=== PATIENT | male | born 1985 | race Caucasian/White ===

== ENCOUNTER 2016-11-19 17:33 | Emergency (ER) | payer SELFPAY ==
[~2016-11-19] VITALS: Ht 182.9 cm; Wt 133.2 kg
[~2016-11-19 17:33] MED LIST: VALIUM 5MG T5 MG/TAB PO
[2016-11-19 17:39] VITALS: BP 135/83; TEMP 98.2
[2016-11-19 18:23] LABS: BASO % 0.2 % (0.0-2.0); EOS # 0.1 (0.0-0.7); GRAN # 4.7 (1.4-6.5); GRAN % 53.8 % (42.2-75.2); HEMATOCRIT 41.9 % (42.0-52.0); HEMOGLOBIN 13.8 g/dl (13.5-18.0); LYMPH # 3.3 (1.2-3.4); LYMPH % 37.5 % (20.0-51.0); MEAN CELL VOLUME 82 fl (80.0-100.0); MEAN CORPUSCULAR HEMOGLOBIN 27 pg (27.0-31.0); MEAN CORPUSCULAR HGB CONC 33 g/dl (33.0-37.0); MEAN PLATELET VOLUME 8.3 fl (7.4-10.4); MONO # 0.6 (0.1-0.6); MONO % 7.3 % (1.7-9.3); PLATELET COUNT 321 K/mm3 (130-400); RED BLOOD COUNT 5.13 M/mm3 (4.20-5.60); REDCELL DISTRIBUTION WIDTH-CV 13.2 % (11.5-14.5); WHITE BLOOD COUNT 8.7 K/mm3 (4.8-10.8)
[2016-11-19 18:32] LABS: ADJUSTED CALCIUM 9.6 mg/dL (8.4-10.2); ALANINE AMINOTRANSFERASE 32 U/L (21-72); ALBUMIN 4.7 gm/dL (3.5-5.0); ALKALINE PHOSPHATASE 67 U/L (50-136); ANION GAP 13 mmol/L (7-16); BILIRUBIN,TOTAL 0.7 mg/dL (0.0-1.0); BLOOD UREA NITROGEN 22 mg/dL (9-20); CALCIUM 10.2 mg/dL (8.4-10.2); CARBON DIOXIDE 28 mmol/L (22-30); CHLORIDE 106 mmol/L (98-107); CREATININE, serum 0.72 mg/dL (0.66-1.25); GLUCOSE 98 mg/dL (74-106); LIPASE 51 U/L (23-300); POTASSIUM 4.2 mmol/L (3.4-5.0); SODIUM 147 mmol/L (137-145); TOTAL PROTEIN 8.2 gm/dL (6.4-8.2)
[2016-11-19 18:45] LABS: TROPONIN-I < 0.012 ng/mL (0.000-0.034)
[2016-11-19 19:45] VITALS: PULSE 81
== END 2016-11-19 19:47 | disposition home or self-care (01) ==
LOC: COL.ER 17:33
PROVIDERS: Physician Assistant
DX: R07.9 Chest pain, unspecified (principal); Z90.89 Acquired absence of other organs; Z87.891 Personal history of nicotine dependence

== ENCOUNTER 2017-02-20 14:14 | Emergency (ER) | payer SELFPAY ==
[~2017-02-20] VITALS: Ht 182.9 cm; Wt 134.1 kg
[2017-02-20 14:16] VITALS: BP 130/81; PULSE 87; TEMP 97.9
[2017-02-20] MEDS ORDERED: CEPHALEXIN500 M1 PO (15:07)
== END 2017-02-20 15:11 | disposition home or self-care (01) ==
LOC: COL.ER 14:14
DX: S91.331A Puncture wound without foreign body, right foot, initial encounter (principal); J45.909 Unspecified asthma, uncomplicated; Z23 Encounter for immunization; Z87.891 Personal history of nicotine dependence; W45.0XXA Nail entering through skin, initial encounter; Y92.009 Unspecified place in unspecified non-institutional (private) residence as the place of occurrence of the external cause